=== PATIENT | male | born 1970 | race Caucasian/White ===

== ENCOUNTER 2023-03-11 08:06 | Outpatient (CLI) | payer BC, SELFPAY | END 2023-03-11 08:07 | disposition home or self-care (01) | LOC: NFLDREF 03-12 14:10 | PROVIDERS: PCP Physician Assistant Medical; Referring Provider Physician Assistant Medical; Visit Provider Physician Assistant Medical | DX: R79.89 Other specified abnormal findings of blood chemistry (principal) | CPT/HCPCS: 84403 ==

== ENCOUNTER 2023-06-22 08:12 | Outpatient (CLI) | payer BC, SELFPAY | END 2023-06-22 08:13 | disposition home or self-care (01) | LOC: NFLDREF 06-23 11:43 | PROVIDERS: PCP Physician Assistant Medical; Referring Provider Physician Assistant Medical; Visit Provider Physician Assistant Medical | DX: E78.2 Mixed hyperlipidemia (principal) | CPT/HCPCS: 80061 ==

== ENCOUNTER 2023-09-14 07:32 | Outpatient (CLI) | payer BC, SELFPAY | END 2023-09-14 07:33 | disposition home or self-care (01) | LOC: NFLDREF 09-16 03:45 | PROVIDERS: PCP Physician Assistant Medical; Referring Provider Physician Assistant Medical; Visit Provider Physician Assistant Medical | DX: R79.89 Other specified abnormal findings of blood chemistry (principal) | CPT/HCPCS: 84403 ==

== ENCOUNTER 2023-12-08 08:12 | Outpatient (CLI) | payer BC, SELFPAY | END 2023-12-08 08:13 | disposition home or self-care (01) | LOC: NFLDREF 12-09 07:21 | PROVIDERS: PCP Physician Assistant Medical; Referring Provider Physician Assistant Medical; Visit Provider Physician Assistant Medical | DX: E78.2 Mixed hyperlipidemia (principal); R79.89 Other specified abnormal findings of blood chemistry | CPT/HCPCS: 80048; 80061; 84403; 84450; 84460 ==

== ENCOUNTER 2025-01-09 10:20 | Outpatient (CLI) | payer BC, SELFPAY | END 2025-01-09 10:21 | disposition home or self-care (01) | LOC: NFLDREF 01-11 18:09 | PROVIDERS: PCP Physician Assistant Medical; Referring Provider Physician Assistant Medical; Visit Provider Physician Assistant Medical | DX: E29.1 Testicular hypofunction (principal); F41.1 Generalized anxiety disorder; I10 Essential (primary) hypertension; E78.2 Mixed hyperlipidemia; Z12.5 Encounter for screening for malignant neoplasm of prostate | CPT/HCPCS: 80053; 80061; 82728; 84443; G0103 ==

== ENCOUNTER 2025-04-12 08:29 | Outpatient (CLI) | payer BC, SELFPAY | END 2025-04-12 08:30 | disposition home or self-care (01) | LOC: NFLDREF 04-14 23:17 | PROVIDERS: PCP Physician Assistant Medical; Referring Provider Physician Assistant Medical; Visit Provider Physician Assistant Medical | DX: E55.9 Vitamin D deficiency, unspecified (principal); E29.1 Testicular hypofunction | CPT/HCPCS: 82306; 84403 ==

== ENCOUNTER 2025-07-26 07:48 | Outpatient (CLI) | payer BC, SELFPAY | END 2025-07-26 07:49 | disposition home or self-care (01) | LOC: NFLDREF 07-31 18:25 | PROVIDERS: PCP Physician Assistant Medical; Referring Provider Physician Assistant Medical; Visit Provider Physician Assistant Medical | DX: E29.1 Testicular hypofunction (principal) | CPT/HCPCS: 84403 ==

== ENCOUNTER 2025-07-26 10:19 | Emergency (ER) | payer BC, SELFPAY ==
[2025-07-26] VITALS (10 sets, daily range): BP systolic 127–147; BP diastolic 73–84; PULSE 61–84; RESP 16–18; TEMP 36.3; O2SAT 83–100; BMI 42.3
--- NOTE | 2025-07-26 10:50 | ED_ITS ---
HPI - General Adult General Chief complaint: Flank Pain Stated complaint: LT lower back pain Time Seen by Provider: 07/26/25 10:48 History of Present Illness HPI narrative: Left side flank pain starting 08:15 pm. No medications before coming in. 54-year-old man presenting to the emergency department concern of left flank area pain. This began about 2 hours prior to presenting in the emergency department fairly abrupt onset. Has a hard time describing the kind of pain it is. Cramping sharp radiating from the left side down to his groin, testicles. Quite intense. No hematuria. No dysuria. No history of kidney stones personal or family. No trauma. Related Data Home Medications ?Medication ?Instructions ?Recorded ?Confirmed biotin 5 mg capsule 5 mg PO QDAY 07/22/22 cholecalciferol (vitamin D3) 125 125 mcg PO QDAY 07/2207/26/25 mcg (5,000 unit) capsule Previous Rx's ?Medication ?Instructions ?Recorded fluoxetine 40 mg capsule 40 mg PO QDAY #90 caps 06/05 rosuvastatin 20 mg tablet 20 mg PO QDAY #90 tabs 01/09 allopurinol 300 mg tablet 300 mg PO QDAY #90 tabs 03/17 04/09 lisinopril 10 mg tablet 10 mg PO QDAY #90 tabs 04/12 testosterone 4 pump topical QDAY #75 gram s 04/17/25 tirzepatide 5 mg/0.5 mL 5 mg (0.5 mL) subcut QWEEK # 2 mL 05/09/25 subcutaneous pen injector (Mounjaro) tamsulosin 0.4 mg capsule 0.4 mg PO DAILY PRN #15 caps 07/26/25 Allergies Allergy/AdvReac Type Severity Reaction Status Date / Time Penicillins Allergy Mild unknown Verified 07/26/25 09:52 Review of Systems Status of ROS: Reports: 6 or more systems reviewed and unremarkable except as noted in History and below [facility] Medical History Nocturia ?R35.1 - Nocturia (ICD-10) Dysuria ?R30.0 - Dysuria (ICD-10) Surgical History History of back surgery ?Z98.890 - Other specified postprocedural states (ICD-10) History of left knee surgery ?Z98.890 - Other specified postprocedural states (ICD-10) Family History Mother COPD (chronic obstructive pulmonary disease) Father Esophageal cancer Social History Narrative: Does not use illicit drugs Nonsmoker What is your current living situation?: I presently have a place to live Problems where you live: no known problems In the past 12 months, utilities in danger of being shut off: no In past 12 months, lack of transportation kept you from medical appts, meetings, work, or getting things needed for daily living: no In the past 12 mos, have been you worried that your food would run out before you had money to buy more?: never true In the past 12 mos, the food you bought just didn't last and you didn't have money to buy more?: never true Smoking Status: Never smoker How often does anyone, including family, friends and others, physically hurt you : never How often does anyone, including family, friends and others, insult or talk down to you: never How often does anyone, including family, friends and others, threaten you with harm: never How often does anyone, including family, friends and others, scream or curse at you: never Exam Narrative: Exam Narrative: Clearly very uncomfortable. Restless. Lightly labored in his breathing. Lungs are clear. Heart in regular rate and rhythm. There is a little discomfort to palpation in the left low abdomen. Not actually with flank tenderness to percussion. Extremities are well perfused without edema. Const: Vital Signs, click to edit/add: Vital Signs - 24 hr 07/26/25 10:36 Temperature 97.3 F L Pulse Rate [Pulse Oximeter] 69 Respiratory Rate 18 Blood Pressure [Ri ght Upper Arm] 147/84 H Pulse Oximetry 95 Oxygen Delivery Me thod Room Air Documenting provider has reviewed patient's vital signs: yes Course Vital Signs Vital signs: Initial Vital Signs Temperature 97.3 F L 07/26/25 10:36 Temperature Source Temporal Artery Scan 07/26/25 10:36 Pulse Rate 69 07/26/25 10:36 Respiratory Rate 18 07/26/25 10:36 Blood Pressure 147/84 H 07/26/25 10:36 Blood Pressure Mean 105 07/26/25 10:36 Blood Pressure Position Sitting 07/26/25 10:36 Pulse Oximetry 95 07/26/25 10:36 Oxygen Delivery Method Room Air 07/26/25 10:36 Vital Signs Temperature 97.3 F L 07/26/25 10:36 Pulse Rate 69 07/26/25 10:36 Respiratory Rate 18 07/26/25 10:36 Blood Pressure 147/84 H 07/26/25 10:36 Pulse Oximetry 95 07/26/25 10:36 Oxygen Delivery Method Room Air 07/26/25 10:36 Temperature 97.3 F L 07/26/25 10:36 Pulse Rate 78 07/26/25 12:15 Respiratory Rate 16 07/26/25 12:01 Blood Pressure 130/80 07/26/25 12:01 Pulse Oximetry 93 07/26/25 12:15 Oxygen Delivery Method Room Air 07/26/25 12:01 Medications Administered Medications: Discontinued Medications Generic Name Dose Route Start Last Admin Trade Name Freq PRN Reason Stop Dose Admin Sodium Chloride 1,000 mls @ 1,000 mls/hr 07/26/25 10:55 07/26/25 12:08 0.9 % Sodium Chloride 1000 Ml IV 07/26/25 11:54 Infused .Q1H ONE Infusion Ketorolac Tromethamine 30 mg 07/26/25 10:55 07/26/25 11:09 Ketorolac 30 Mg/Ml Inj IVP 07/26/25 10:56 30 mg ONCE ONE Administration Morphine Sulfate 4 mg 07/26/25 10:55 07/26/25 11:14 Morphine 4 Mg/Ml Inj IVP 07/26/25 10:56 4 mg ONCE ONE Administration Ondansetron HCl 4 mg 07/26/25 10:55 07/26/25 11:08 Ondansetron 2 Mg/Ml Inj IVP 07/26/25 10:56 4 mg ONCE ONE Administration Tamsulosin HCl 0.4 mg 07/26/25 12:06 07/26/25 12:13 Tamsulosin Hcl 0.4 Mg Capsule PO 07/26/25 12:07 0.4 mg ONCE ONE Administration Medical Decision Making MDM Narrative Medical decision making narrative: Leading in differential I think is ureteral stone and colic. Urinary tract infection possible. Vascular disruption? I do not feel wall defect or swelling to suggest a hernia. Musculoskeletal injury seems unlikely? IV fluids and morphine and ketorolac and Zofran. Standard labs and noncontrast CT of abdomen and pelvis. Urinalysis with blood. Mildly elevated white count might be margination or indication of infection. Noncontrast CT scan abdomen and pelvis independently reviewed by me does show a distal left ureteral stone measuring 3-4 mm. There is some perinephric stranding. Should be passable stone. Ordered for tamsulosin. INDICATION: Severe left-sided flank pain COMPARISON: None. TECHNIQUE: CT of the abdomen and pelvis without intravenous contrast. FINDINGS: Please note that absence of intravenous contrast limits evaluation of soft tissue and vascular structures. 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 There is a solid subpleural pulmonary micronodule in the right lower lobe (2/10). No pleural effusion. Liver: Smooth hepatic contour. A 6 millimeter hypoattenuating focus in the left hepatic lobe is too small to characterize (2/33). Relatively large size of the left hepatic lobe. Gallbladder and biliary tree: Unremarkable noncontrast CT appearance. Spleen: No splenomegaly. Pancreas: Unremarkable noncontrast CT appearance. Adrenal glands: Normal. Kidneys and ureters: No right-sided hydroureteronephrosis or calculus. 4 millimeter obstructing calculus in the left distal ureter with slight left-sided hydroureteronephrosis. Slight left-sided perinephric and periureteric fat stranding. Bladder: The bladder is decompressed. There is a small amount of fatty metaplasia at the anterior bladder. Visualized reproductive organs: Bilateral inguinal surgical clips presumably related to prior vasectomy. Gastrointestinal tract: No focal abnormally dilated loops of bowel. There is colonic diverticulosis. Peritoneal cavity: No free fluid or free air. Lymph nodes: Mildly enlarged 12 millimeter portacaval lymph node (2/47). Vessels: No abdominal aortic aneurysm. Mild aortic calcification. Abdominal and pelvic wall: Tiny fat containing umbilical hernia. Rectus abdominis diastasis. A tiny amount of soft tissue gas in the subcutaneous fat of the left ventral abdominal wall is probably due to sequela of medication injection. Small bilateral fat containing inguinal hernia and/or lipomatosis of the spermatic cord. Bones: There are osseous degenerative changes. Hypoplastic bilateral T12 ribs. 5 lumbar vertebra. Status post L5-S1 instrumented fusion. IMPRESSION: 1. Obstructing 4 millimeter calculus in the left distal ureter with slight left-sided hydroureteronephrosis. Slight left-sided perinephric and periureteric fat stranding. 2. Relatively large size of the left hepatic lobe possibly indicating underlying fibrosis. Consider further evaluation with elastography. 3. Mildly enlarged 12 millimeter portacaval lymph node. 4. Right lower lobe solid subpleural pulmonary micronodule. For a incidental micronodule detected on abdominal CT, no further imaging follow-up is recommended. 5. Additional chronic and incidental findings as detailed above. Please note that all CT scans at this facility use dose modulation, iterative reconstruction, and/or weight-based dosing when appropriate to reduce radiation dose to as low as reasonably achievable. Dictated by Sagar Killian MD @ 07/26/2025 11:34:38 AM Overall symptoms are improved. Discussed all findings by Radiology with Mr. Mclaughlin and recommending follow-up with primary care provider. I think these are primarily benign incidental findings See patient discharge plan for further discussion Stay well-hydrated generally with water. Consider straining your urine over this next week. If you happen to get the stone, can take in for analysis to allow for further dietary/treatment recommendations. Be seen for pain persisting at 5 days, uncontrolled pain, intractable vomiting, fever. Prescribing Percocet and Zofran [facility]. Otherwise would take up to 800 mg of ibuprofen per dose. This can be combined with the above. Also sending in tamsulosin, also known as Flomax, to your pharmacy. This can help with spasming. Take this daily until it appears that the stone this passed. Lab Data Lab results reviewed: Yes I reviewed the patient's lab results Labs: Lab Results 07/26/25 07/26/25 Range/Units 10:50 10:55 WBC 12.63 H (4.50-11.00) K/uL RBC 5.25 (4.30-5.90) m/uL Hgb 15.2 (13.5-17.5) gm/dL Hct 48.0 (37.0-53.0) % MCV 91 (80-100) fL MCH 29 (26-34) pg MCHC 32 (32-36) gm/dL RDW Coeff of Juanita 14.4 (11.5-15.5) % Plt Count 243 (140-440) K/uL Neut % (Auto) 82.7 H (42.0-72.0) % Lymph % (Auto) 11.4 L (20-44) % Chester % (Auto) 4.9 (0.0-11.0) % Eos % (Auto) 0.7 (0.0-7.0) % Baso % (Auto) 0.1 (0.0-3.0) % Neut # (Auto) 10.40 H (1.7-7.0) K/uL Lymph # (Auto) 1.40 (0.90-2.90) K/uL Chester # (Auto) 0.60 (0.00-0.90) K/UL Eos # (Auto) 0.10 (0.00-0.50) K/uL Baso # (Auto) 0.00 (0.00-0.30) K/uL Abs Immat Gran (auto) 0.00 (0.00-0.30) K/uL Imm/Tot Granulo (auto) 0.2 % Sodium 139 (135-149) mmol/L Potassium 4.2 (3.6-5.1) mmol/L Chloride 101 (96-114) mmol/L Carbon Dioxide 19 L (20-32) mmol/L Anion Gap 19 H (7-15) mEq/L BUN 15 (7-30) mg/dL Creatinine 1.1 (0.5-1.5) mg/dL Estimated Creat Clear 79.27 Estimated GFR 80 ml/min Glucose 146 H (60-115) mg/dL Calcium 9.8 (8.4-10.6) mg/dL C-Reactive Protein 1.0 (0.5-1.0) mg/dL POC Creatinine 1.3 (0.6-1.3) mg/dl Discharge Plan Discharge Clinical Impression: Left ureteral calculus, Ureteral colic Patient Disposition: Home w/ Parent or Adult Condition: Improved Additional Instructions: Stay well-hydrated generally with water. Consider straining your urine over this next week. If you happen to get the stone, can take in for analysis to allow for further dietary/treatment recommendations. Be seen for pain persisting at 5 days, uncontrolled pain, intractable vomiting, fever. Prescribing Percocet and Zofran [facility]. Otherwise would take up to 800 mg of ibuprofen per dose. This can be combined with the above. Also sending in tamsulosin, also known as Flomax, to your pharmacy. This can help with spasming. Take this daily until it appears that the stone this passed. Prescriptions: New tamsulosin 0.4 mg capsule 0.4 mg PO DAILY PRNQty: 15 0RF No Action biotin 5 mg capsule 5 mg PO QDAY cholecalciferol (vitamin D3) 125 mcg (5,000 unit) capsule 125 mcg PO QDAY fluoxetine 40 mg capsule 40 mg PO QDAY Qty: 90 3RF rosuvastatin 20 mg tablet 20 mg PO QDAY Qty: 90 3RF allopurinol 300 mg tablet 300 mg PO QDAY Qty: 90 3RF lisinopril 10 mg tablet 10 mg PO QDAY Qty: 90 3RF testosterone 20.25 mg/1.25 gram (1.62 %) gel in metered-dose pump 4 pump topical QDAY Qty: 75 3RF Rx Instructions: apply 4 pump amount over max area of EACH upper arm and shoulder Mounjaro 5 mg/0.5 mL pen injector 5 mg subcut QWEEK Qty: 2 2RF Follow Up/Referrals: Latricia Baker PA-C [Primary Care Provider, Family Practice] Stand Alone Forms: MyHealth Info Instructions
--- NOTE | 2025-07-26 10:55 | CRLHL7_ITS ---
For Patients: As a result of the Century Cures Act, medical imaging exams and procedure reports are released immediately into your electronic medical record. You may view this report before your referring provider. If you have questions, please contact your health care provider. INDICATION: Severe left-sided flank pain COMPARISON: None. TECHNIQUE: CT of the abdomen and pelvis without intravenous contrast. FINDINGS: Please note that absence of intravenous contrast limits evaluation of soft tissue and vascular structures. 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 There is a solid subpleural pulmonary micronodule in the right lower lobe (2/10). No pleural effusion. Liver: Smooth hepatic contour. A 6 millimeter hypoattenuating focus in the left hepatic lobe is too small to characterize (2/33). Relatively large size of the left hepatic lobe. Gallbladder and biliary tree: Unremarkable noncontrast CT appearance. Spleen: No splenomegaly. Pancreas: Unremarkable noncontrast CT appearance. Adrenal glands: Normal. Kidneys and ureters: No right-sided hydroureteronephrosis or calculus. 4 millimeter obstructing calculus in the left distal ureter with slight left-sided hydroureteronephrosis. Slight left-sided perinephric and periureteric fat stranding. Bladder: The bladder is decompressed. There is a small amount of fatty metaplasia at the anterior bladder. Visualized reproductive organs: Bilateral inguinal surgical clips presumably related to prior vasectomy. Gastrointestinal tract: No focal abnormally dilated loops of bowel. There is colonic diverticulosis. Peritoneal cavity: No free fluid or free air. Lymph nodes: Mildly enlarged 12 millimeter portacaval lymph node (2/47). Vessels: No abdominal aortic aneurysm. Mild aortic calcification. Abdominal and pelvic wall: Tiny fat containing umbilical hernia. Rectus abdominis diastasis. A tiny amount of soft tissue gas in the subcutaneous fat of the left ventral abdominal wall is probably due to sequela of medication injection. Small bilateral fat containing inguinal hernia and/or lipomatosis of the spermatic cord. Bones: There are osseous degenerative changes. Hypoplastic bilateral T12 ribs. 5 lumbar vertebra. Status post L5-S1 instrumented fusion. IMPRESSION: 1. Obstructing 4 millimeter calculus in the left distal ureter with slight left-sided hydroureteronephrosis. Slight left-sided perinephric and periureteric fat stranding. 2. Relatively large size of the left hepatic lobe possibly indicating underlying fibrosis. Consider further evaluation with elastography. 3. Mildly enlarged 12 millimeter portacaval lymph node. 4. Right lower lobe solid subpleural pulmonary micronodule. For a incidental micronodule detected on abdominal CT, no further imaging follow-up is recommended. 5. Additional chronic and incidental findings as detailed above. Please note that all CT scans at this facility use dose modulation, iterative reconstruction, and/or weight-based dosing when appropriate to reduce radiation dose to as low as reasonably achievable. Dictated by Sagar Killian MD @ 07/26/2025 11:34:38 AM (Electronically Signed)
[2025-07-26 11:06] LABS: Hematocrit* 48.0 % (37.0-53.0); Hemoglobin* 15.2 gm/dL (13.5-17.5); Immature Granulocytes Pct Auto 0.2 %; Mean Corpuscular HGB Conc 32 gm/dL (32-36); Mean Corpuscular Hemoglobin 29 pg (26-34); Mean Corpuscular Volume 91 fL (80-100); RDW Coefficient of Variation % 14.4 % (11.5-15.5); Red Blood Count* 5.25 m/uL (4.30-5.90); White Blood Count* 12.63 K/uL (4.50-11.00)
[2025-07-26 11:07] LABS: Immature Granulocytes Abs Auto 0.00 K/uL (0.00-0.30); Lymphocytes Absolute Auto 1.40 K/uL (0.90-2.90)
[2025-07-26 11:08] LABS: Slide Review Reflex No
[2025-07-26] MEDS: ONDANSETRON 2 MG/ML inj 4 MG IVP (11:08)
[2025-07-26] MEDS: MORPHINE 4 MG/ML INJ IVP (11:14)
[2025-07-26 11:19] LABS: Chloride* 101 mmol/L (96-114); Potassium* 4.2 mmol/L (3.6-5.1); Sodium* 139 mmol/L (135-149)
[2025-07-26 11:19] LABS: Creatinine, Point-of-Care* 1.3 mg/dl (0.6-1.3)
[2025-07-26 11:22] LABS: Blood Urea Nitrogen* 15 mg/dL (7-30); Creatinine* 1.1 mg/dL (0.5-1.5); Est. Creatinine Clearance* 79.27; Estimated Glomerular Filt Rate 80 ml/min
[2025-07-26 11:23] LABS: Anion Gap 19 mEq/L (7-15); Calcium* 9.8 mg/dL (8.4-10.6); Carbon Dioxide* 19 mmol/L (20-32); Glucose* 146 mg/dL (60-115)
[2025-07-26] MEDS: TAMSULOSIN HCL 0.4 MG CAPSULE PO (12:13)
== END 2025-07-26 12:37 | disposition home or self-care (01) ==
PROVIDERS: Emergency Provider Family Medicine; PCP Physician Assistant Medical
DX: N13.2 Hydronephrosis with renal and ureteral calculous obstruction (principal); Z88.0 Allergy status to penicillin; E29.1 Testicular hypofunction
CPT/HCPCS: 36415; 74176; 80048; 82565; 85025; 86140; 96361; 96374; 96375; 99284; 99285; A9270; J1885; J2270; J2405; J7030

== ENCOUNTER 2025-08-03 08:58 | Outpatient (CLI) | payer BC, SELFPAY ==
--- NOTE | 2025-08-03 09:15 | CRLHL7_ITS ---
For Patients: As a result of the Century Cures Act, medical imaging exams and procedure reports are released immediately into your electronic medical record. You may view this report before your referring provider. If you have questions, please contact your health care provider. INDICATION: Hepatomegaly COMPARISON: CT 07/26/2025 TECHNIQUE: Real time daly scale imaging and color Doppler analysis was performed of the right upper quadrant. FINDINGS: Liver measures 20.5 cm. Liver echotexture is diffusely increased. No intrahepatic mass. There is a normal appearance of the hepatic IVC and proximal abdominal aorta. There is no evidence of ascites. The gallbladder is of normal size and there is no evidence of intraluminal stones or sludge. The gallbladder wall measures 2.3 mm in thickness. The common bile duct is of normal size and measures 5.1 mm in diameter at the level of the sp hepatis. The pancreas appears normal. There is no evidence of a stone or hydronephrosis within the right kidney. The right kidney measures 11.3 cm in length. IMPRESSION: Hepatomegaly and diffuse hepatic steatosis. No intrahepatic mass or ascites. Normal gallbladder. Dictated by Hang Richard MD @ 08/03/2025 10:42:49 AM (Electronically Signed)
== END 2025-08-03 08:59 | disposition home or self-care (01) ==
LOC: US 08:58
PROVIDERS: PCP Physician Assistant Medical; Visit Provider Physician Assistant Medical
DX: R16.0 Hepatomegaly, not elsewhere classified (principal); K76.0 Fatty (change of) liver, not elsewhere classified
CPT/HCPCS: 76705